=== PATIENT | female | born 1975 ===

== ENCOUNTER → 2019-06-13 | Outpatient (CLI) | payer OTHER | LOC: GMAJ 15:17 | PROVIDERS: ATTEND Family Medicine | DX: E34.9 Endocrine disorder, unspecified (principal) ==

== ENCOUNTER → 2020-05-16 | Outpatient (CLI) | payer SELFPAY | LOC: GMAJ 16:58 | PROVIDERS: ATTEND Family Medicine | DX: R61 Generalized hyperhidrosis (principal) ==